=== PATIENT | male | born 1965 | race Caucasian/White ===

== ENCOUNTER 2016-12-10 10:08 | Emergency (ER) | payer OTHER ==
--- NOTE | ~2016-12-10 | EKG ---
PATIENT: AGUSTIN ADAME UNIT #: [id number] Ventricular Rate: 59 BPM Atrial Rate: 59 BPM P-R Interval: 156 ms QRS Duration: 80 ms Q-T Interval: 426 ms QTC Calculation(Bezet): 421 ms P [place]: 65 degrees Calculated R [place]: 67 degrees Calculated T [place]: 65 degrees Diagnosis Line: Sinus bradycardia Diagnosis Line: Otherwise normal ECG Diagnosis Line: No previous ECGs available Diagnosis Line: Confirmed by HANG CHAMBERLAIN MD ([id number]) on Diagnosis Line: 12/10/2016 3:30:17 PM INTERPRETING MD: CINTIA BAIRD
--- NOTE | ~2016-12-10 | CT71 ---
[facility] A Service [facility] RADIOLOGY TEXT RESULTS PATIENT: AGUSTIN ADAME JR LOCATION: SED : 61 UNIT #: [id number] AGE: [address]: Jamie Olson MD SEX: M ORDER DR: [id number] [place] [id number] E MR#: [id number] Acc #: [id number] NAME: AGUSTIN ADAME : 1965 SEX: M STUDY DATE/TIME: 12/10/2016 10:22 UNIT: SED ROOM: STUDY DESCRIPTION: CT Head Wo Contrast Attending Physician: Jamie Olson M.D. Ordering Physician: Jamie Olson M.D. Primary Care Physician: Primary Care Physician No MEDICAL IMAGING REPORT This report is preliminary unless electronic signature is present. EXAM CT brain without contrast media HISTORY Shortness of breath, syncopal episode this morning at work, confusion. TECHNIQUE Transaxial imaging of the brain was performed without contrast media. This CT exam was performed with one or more of the following radiation dose reduction techniques: automatic exposure control, adjustment of mA and/or kV according to patient size, and iterative reconstruction. COMPARISON There are no previous studies for comparison. FINDINGS Ventricular size and configuration is normal. No intra or extraaxial mass lesions, fluid collections or mass effect are seen. No focal areas of low attenuation or evidence of acute intracranial hemorrhage. There is evidence of right maxillary sinus disease. Mastoid air cells are clear. CONCLUSION 1. Negative noncontrast CT of the brain. 2. Right maxillary sinus disease. Dictated by... Agustin Amaro M.D. THIS IS AN ELECTRONICALLY VERIFIED REPORT Agustin Amaro M.D. at 12/11/2016 8:00 AM [facility] A Service [facility] RADIOLOGY TEXT RESULTS PATIENT: AGUSTIN ADAME JR LOCATION: SED : 61 UNIT #: [id number] AGE: [address]: Jamie Olson MD SEX: M ORDER DR: TD: 12/10/2016 12:12 JOB #: [id number] MEDICAL IMAGING REPORT
--- NOTE | ~2016-12-10 | CR72 ---
[facility] A Service [facility] RADIOLOGY TEXT RESULTS PATIENT: AGUSTIN ADAME JR LOCATION: SED : 61 UNIT #: [id number] AGE: [address]: Jamie Olson MD SEX: M ORDER DR: [id number] [place] [id number] E MR#: [id number] Acc #: [id number] NAME: AGUSTIN ADAME : 1965 SEX: M STUDY DATE/TIME: 12/10/2016 10:25 UNIT: SED ROOM: STUDY DESCRIPTION: CR Chest Single View Portable Attending Physician: Jamie Olson M.D. Ordering Physician: Jamie Olson M.D. Primary Care Physician: No Primary Care Physician MEDICAL IMAGING REPORT This report is preliminary unless electronic signature is present. EXAM Portable chest. CLINICAL HISTORY 51-year-old man with altered mental status this morning, syncopal episode at work. COMPARISON STUDIES 04/09/2013 FINDINGS Portable upright chest is performed. The patient's arm obscures the lateral lower right chest. The cardiac, mediastinal, and hilar contours are normal. No acute pulmonary densities or pleural effusions are seen. IMPRESSION Film is limited by the patient's arm which overlies the lateral lower right chest. No acute cardiopulmonary findings are seen. Dictated by... Brittnee Allan M.D. THIS IS AN ELECTRONICALLY VERIFIED REPORT Brittnee Allan M.D. at 12/10/2016 1:34 PM LAURA/mary TD: 12/10/2016 12:04 JOB #: [id number] [facility] A Service [facility] RADIOLOGY TEXT RESULTS PATIENT: AGUSTIN DAAME JR LOCATION: SED : 61 UNIT #: [id number] AGE: [address]: Jamie Olson MD SEX: M ORDER DR: MEDICAL IMAGING REPORT
[~2016-12-10 10:08] MED LIST: ALBUTEROL17 GM; BACTRIM DS TABL1 TA1 PO; FLEXERIL10 MG PO; NO MEDICATIONS; ULTRAM PO; VEETIDS 500500 M1 PO; VOLTAREN75 MG PO
[2016-12-10 10:28] LABS: POC - CKMB <1.0 ng/mL (0.0-7.9); POC - MYOGLOBIN 94.3 ng/mL (0.0-169.0)
[2016-12-10 10:29] LABS: POC - TROPONIN <0.05 ng/mL (<=0.05)
[2016-12-10 11:28] LABS: URINE SOURCE CLEAN CATCH
[2016-12-10 11:32] LABS: URINE APPEARANCE CLEAR; URINE BILIRUBIN NEG (NEG); URINE BLOOD NEG (NEG); URINE COLOR YELLOW; URINE GLUCOSE NEG (NORM); URINE KETONE NEG (NEG); URINE LEUKOCYTE ESTERASE NEG (NEG); URINE NITRATE NEG (NEG); URINE PROTEIN NEG (NEG); URINE UROBILINOGEN 0.2 MG/DL (NORM)
[2016-12-10 11:36] LABS: MICRO INDICATED? NO
[2016-12-10 11:41] LABS: AMPHETAMINE NEG (NEG); BARBITURATES NEG (NEG); BENZODIAZEPINES NEG (NEG); COCAINE NEG (NEG); MARIJUANA POS (NEG); OPIATES NEG (NEG); TRICYCLIC ANTIDEPRESSANTS NEG (NEG); U METHADONE NEG (NEG)
[2016-12-10 12:00] LABS: BASOPHIL# 0.1 X10e3 (0-0.3); BASOPHIL% 0.9 % (0-2.5); EOSINOPHIL# 0.4 X10e3 (0-0.7); EOSINOPHIL% 3.2 % (0.0-7.0); HEMATOCRIT 41.3 % (38.0-50.0); HEMOGLOBIN 13.6 gm/dL (13.0-16.0); LYMPHOCYTE# 1.8 X10e3 (1.0-3.5); LYMPHOCYTE% 13.5 % (17.0-45.0); MEAN CELL VOLUME 88.4 FL (83-96); MEAN CORPUSCULAR HGB CONC 32.8 g/dL (30-36); MEAN PLATELET VOLUME 8.1 FL (6.5-11.5); MONOCYTE# 0.8 X10e3 (0-1.0); MONOCYTE% 6.5 % (3.0-12.0); NEUTROPHIL# 9.9 X10e3 (1.5-7.1); NEUTROPHIL% 75.9 % (40-75); PLATELET COUNT 213 X10e3 (140-420); RED BLOOD COUNT 4.67 X10e (3.90-5.60); RED CELL DISTRIBUTION WIDTH 13.4 % (11.0-15.5)
[2016-12-10 12:10] LABS: DIFF IND NO
[2016-12-10 12:23] LABS: BLOOD UREA NITROGEN 6 mg/dL (9-23); CALCIUM SERUM 8.2 mg/dL (8.4-10.2); CARBON DIOXIDE 26 mmol/L (22-31); CHLORIDE 108 mmol/L (100-111); GLOM FILT RATE Estimated ABOVE60 mL/min (>60); GLUCOSE FASTING 89 mg/dL (70-110); POTASSIUM 3.9 mmol/L (3.5-5.1); SODIUM 139 mmol/L (135-145)
== END 2016-12-10 13:08 | disposition home or self-care (01) ==
LOC: SED 10:08
PROVIDERS: Emergency Medicine
DX: R55 Syncope and collapse (principal); F17.200 Nicotine dependence, unspecified, uncomplicated
CPT/HCPCS: 70450; 71010; 80048; 80307; 81003; 82553; 83874; 84484; 85025; 93005; 99285